=== PATIENT | female | born 1995 | race Caucasian/White ===

== ENCOUNTER 2020-06-24 22:25 | Inpatient (IN) | payer OTHER ==
[~2020-06-24] VITALS: Ht 170.2 cm; Wt 92.5 kg
[2020-06-25] MEDS ORDERED: VITAFOL-OB+DHA1 EACH PO (03:48)
--- NOTE | 2020-06-25 04:33 | PR ---
[facility] [address] [facility] [place], [place] [address] Signed Progress Notes IP Datetime Report Generated by RAZA: 06/25/2020 04:33 PROGRESS NOTES: [id number] Impression: Normal Progression of Labor; Reassuring Heart Rate Procedures: Artificial ROM; Sterile Vag Exam Plan: Continue Present Management VITAL SIGNS: [id number] Vital Signs: Reviewed; Within Normal Limits EXAM: [id number] Dilatation: 9.0 Effacement: 100 Station: -2 MEMBRANES: [id number] Comments: Comfortable after epidural. Progressing well. AROM with small amount of clear fluid. Will continue. FETUS A: [id number] FHR Baseline: 130 Variability: Moderate 6-25bpm Accelerations: 15X15 FETUS B: [id number] Signing Physician: Sushila Craig MD Copies: ~ *Electronically Signed* 06/25/20 0433 SUSHILA CRAIG MD PATIENT NAME: NAT ZAMORA PROGRESS NOTE DATE OF : 95 PHYSICIAN: SUSHILA CRAIG MD RPT #: [id number] REPORT IS CONFIDENTIAL AND NOT TO BE RELEASED WITHOUT AUTHORIZATION
--- NOTE | 2020-06-26 09:34 | PR ---
[facility] [address] [facility] [place] [address] Signed PP Progress Notes Datetime Report Generated by CPN: 06/26/2020 09:34 SUBJECTIVE: [id number] Pain: Within Normal Limits Nausea/Vomiting: Denies Vital Signs: [id number] Vital Signs: Reviewed; Within Normal Limits Notable Details: PP Hgb/Hct = 11.5/34.2 EXAM: Ongoing Abdomen/Uterus: Normal Lochia: Normal Extremities: Normal IMPRESSION/PLAN/PROCEDURES: [id number] Impression: Normal Progression Plan: Discharge Procedures: None Progress Notes: Doing well, without complaint, would like to go home today. Signing Physician: Fuad Myles MD Copies: ~ *Electronically Signed* 06/26/20 0934 FUAD MYLES MD PATIENT NAME: NAT ZAMORA PROGRESS NOTE DATE OF : 95 PHYSICIAN: FUAD MYLES MD RPT #: [id number] REPORT IS CONFIDENTIAL AND NOT TO BE RELEASED WITHOUT AUTHORIZATION
== END 2020-06-26 16:09 | disposition home or self-care (01) | DRG 807 ==
LOC: FBCO 22:25 → FBC 06-25 01:58
PROVIDERS: ADMIT General Practice
PROC: 10E0XZZ Delivery of Products of Conception, External Approach (ICD-10-PCS; principal; 2020-06-25)
PROC: 0UQMXZZ Repair Vulva, External Approach (ICD-10-PCS; 2020-06-25)
PROC: 3E0S3BZ Introduction of Anesthetic Agent into Epidural Space, Percutaneous Approach (ICD-10-PCS; 2020-06-25)
PROC: 00HU33Z Insertion of Infusion Device into Spinal Canal, Percutaneous Approach (ICD-10-PCS; 2020-06-25)
DX: O71.82 Other specified trauma to perineum and vulva (principal); Z37.0 Single live birth; Z3A.39 39 weeks gestation of pregnancy
CPT/HCPCS: 01960; 36415; 59025; 85027; 99213; A9270; J2590; J2795; J7121

== ENCOUNTER 2024-04-13 20:28 | Inpatient (IN) | payer OTHER ==
[~2024-04-13 20:28] MED LIST: VITAFOL-OB+DHA1 EACH PO
[2024-04-13] MEDS ORDERED: ondansetron HCL 4 MG/2 ML VIAL IV PRN (21:15)
[2024-04-13] MEDS ORDERED: OXYTOCIN/DEXTROSE 5% 20 UNITS/100 ML BAG IV SCH (21:15)
[2024-04-13] MEDS ORDERED: LACTATED RINGER'S 1,000 ML IV PRN (21:15)
[2024-04-13] MEDS ORDERED: CALCIUM CARBONATE 500 MG CHEW PO PRN (21:15)
[2024-04-13] MEDS ORDERED: MAGNESIUM HYDROXIDE/AL HYDROX 30 ML CUP PO PRN (21:15)
[2024-04-13] MEDS ORDERED: LIDOCAINE 2% VISCOUS 6 ML SYR TOP ONE ×2 (21:15)
[2024-04-13 21:44] LABS: HEMATOCRIT 34.3 % (35.0-50.0); HEMOGLOBIN 11.7 g/dL (12.0-18.0); MCH 28.6 (27-36); MCHC 34.2 g/dl (30-36); MCV 83.6 fl (81-99); RBC 4.11 M/ul (4.3-5.7); RDW 15.7 (10.5-15.0)
[2024-04-13] MEDS ORDERED: ROPIVACAINE 0.2% 200 ML BAG ONE (22:10)
[2024-04-13 22:20] LABS: ABO O; ANTIBODY SCREEN NEGATIVE; RH POSITIVE
[2024-04-13 22:31] LABS: AMPHETAMINES, URINE NEGATIVE (NEGATIVE); BARBITURATES, URINE NEGATIVE (NEGATIVE); BENZODIAZEPINE, URINE NEGATIVE (NEGATIVE); BUPRENORPHINE, URINE NEGATIVE (NEGATIVE); CANNABINOID, URINE POSITIVE (NEGATIVE); COCAINE, URINE NEGATIVE (NEGATIVE); ECSTASY, URINE NEGATIVE (NEGATIVE); FENTANYL, URINE NEGATIVE (NEGATIVE); METHADONE, URINE NEGATIVE (NEGATIVE); OPIATES, URINE NEGATIVE (NEGATIVE); OXYCODONE, URINE NEGATIVE (NEGATIVE); PHENCYCLIDINE, URINE NEGATIVE (NEGATIVE)
[2024-04-13] MEDS ORDERED: LACTATED RINGER'S 500 ML IV PRN (23:00)
[2024-04-13] MEDS ORDERED: LACTATED RINGER'S 2,000 ML IV ONE (23:00)
[2024-04-13] MEDS ORDERED: ePHEDrine sulfate 5 MG/ML SYRINGE IV PRN (23:00)
[2024-04-13] MEDS ORDERED: ROPIVACAINE 0.2% 200 ML BAG EPIDURAL SCH (23:00)
[2024-04-13] MEDS ORDERED: ePHEDrine KIT FOR FBC IV ONE (23:32)
[2024-04-14] MEDS ORDERED: MAGNESIUM HYDROXIDE 30 ML UDC PO PRN (01:45)
[2024-04-14] MEDS ORDERED: IBUPROFEN 600 MG TAB PO PRN (01:45)
[2024-04-14] MEDS ORDERED: MAGNESIUM HYDROXIDE/AL HYDROX 30 ML CUP PO PRN (01:45)
[2024-04-14] MEDS ORDERED: HYDROCODONE/ACETA 5/325 TAB PO PRN (01:45)
[2024-04-14] MEDS ORDERED: LIDOCAINE 2% VISCOUS 6 ML SYR TOP ONE ×2 (01:45)
[2024-04-14] MEDS ORDERED: BENZOCAINE 60 ML AEROSOL TOP PRN (01:45)
[2024-04-14] MEDS ORDERED: OXYTOCIN/0.9 % SODIUM CHLORIDE 500 ML IV SCH (01:45)
[2024-04-14] MEDS ORDERED: WITCH HAZEL/GLYCERIN 1 EA PAD TOP PRN (01:45)
[2024-04-14] MEDS ORDERED: ACETAMINOPHEN 325 MG TAB PO PRN (01:45)
[2024-04-14] MEDS ORDERED: CALCIUM CARBONATE 500 MG CHEW PO PRN (01:45)
[2024-04-14] MEDS ORDERED: HYDROCORTISONE ACETATE 25 MG SUPP PR PRN (01:45)
[2024-04-14] MEDS ORDERED: SENNOSIDES/DOCUSATE 1 EA TAB PO SCH (09:00)
[2024-04-15 06:24] LABS: HEMATOCRIT 33.7 % (35.0-50.0); HEMOGLOBIN 11.2 g/dL (12.0-18.0); MCH 28.4 (27-36); MCHC 33.2 g/dl (30-36); MCV 85.7 fl (81-99); RBC 3.93 M/ul (4.3-5.7); RDW 16.1 (10.5-15.0)
--- NOTE | 2024-04-15 08:31 | PR ---
[facility] [address] [facility] [place], [place] [address] Signed PP Progress Notes Datetime Report Generated by RAZA: 04/15/2024 08:31 SUBJECTIVE: [id number] Pain: Within Normal Limits Vital Signs: [id number] Vital Signs: Reviewed; Within Normal Limits Cardiovascular: Not Done Respiratory: Not Done Abdomen/Uterus: Abnormal Lochia: Normal Vulva/Perineum: Not Done Breasts: Not Done CVA Tenderness: Not Done Extremities: Normal Incision: Not Applicable Progress: Normal Exam Comments: Fundus firm, NT @ U-2. H/H 11.2/33.7, WBC 11.2, plat 246k IMPRESSION/PLAN/PROCEDURES: [id number] Impression: Normal Progression Plan: Discharge Procedures: None Progress Notes: Doing well. She desires discharge. Signing Physician: Sushila Craig MD Copies: ~ *Electronically Signed* 04/15/24830 SUSHILA CRAIG MD PATIENT NAME: NAT ZAMORA PROGRESS NOTE DATE OF : 95 PHYSICIAN: SUSHILA CRAIG MD RPT #: [id number] REPORT IS CONFIDENTIAL AND NOT TO BE RELEASED WITHOUT AUTHORIZATION
== END 2024-04-15 18:45 | disposition home or self-care (01) | DRG 807 ==
LOC: FBCO 20:28 → FBC 21:00
PROVIDERS: ADMIT Obstetrics & Gynecology; ATTEND Obstetrics & Gynecology
PROC: 10E0XZZ Delivery of Products of Conception, External Approach (ICD-10-PCS; principal; 2024-04-14)
PROC: 3E0R3BZ Introduction of Anesthetic Agent into Spinal Canal, Percutaneous Approach (ICD-10-PCS; 2024-04-14)
PROC: 00HU33Z Insertion of Infusion Device into Spinal Canal, Percutaneous Approach (ICD-10-PCS; 2024-04-14)
PROC: 0HQ9XZZ Repair Perineum Skin, External Approach (ICD-10-PCS; 2024-04-14)
PROC: 10907ZC Drainage of Amniotic Fluid, Therapeutic from Products of Conception, Via Natural or Artificial Opening (ICD-10-PCS; 2024-04-14)
DX: O69.81X0 Labor and delivery complicated by cord around neck, without compression, not applicable or unspecified (principal); Z37.0 Single live birth; Z3A.39 39 weeks gestation of pregnancy; O70.0 First degree perineal laceration during delivery
CPT/HCPCS: 01960; 36415; 80307; 85027; 86850; 86900; 86901; A9270; J2405; J2590; J2795; J7121